=== PATIENT | male | born 1960 | race African-American/Black ===

== ENCOUNTER 2022-07-20 14:06 | Emergency (ER) | payer OTHER ==
[~2022-07-20] VITALS: Ht 172.7 cm; Wt 77.0 kg
[2022-07-20 14:25] VITALS: BP 122/71
[2022-07-20] MEDS ORDERED: IBUPROFEN 600MG TABLET PO ONE (14:45)
== END 2022-07-20 15:09 | disposition home or self-care (01) ==
LOC: ER 14:06
DX: S05.12XA Contusion of eyeball and orbital tissues, left eye, initial encounter (principal); Y04.0XXA Assault by unarmed brawl or fight, initial encounter; Y93.89 Activity, other specified; Y92.89 Other specified places as the place of occurrence of the external cause; Y99.8 Other external cause status
CPT/HCPCS: 99282